=== PATIENT | female | born 1990 | race Caucasian/White ===

== ENCOUNTER 2022-01-27 11:03 | Emergency (ER) | payer OTHER ==
[~2022-01-27] VITALS: Ht 165.1 cm; Wt 77.1 kg
== END 2022-01-27 20:48 | disposition home or self-care (01) ==
LOC: ER 11:03
DX: N72 Inflammatory disease of cervix uteri (principal); B96.20 Unspecified Escherichia coli [E. coli] as the cause of diseases classified elsewhere; Z16.11 Resistance to penicillins; N83.209 Unspecified ovarian cyst, unspecified side